=== PATIENT | female | born 1970 | race Caucasian/White ===

== ENCOUNTER 2020-01-14 10:09 | Day surgery (SDC) | payer OTHER ==
[~2020-01-14] VITALS: Ht 152.4 cm; Wt 48.4 kg
[~2020-01-14 10:09] MED LIST: ADDE10CA3 PO; AMBI10TA PO; AMLO5TAB6 PO; CITA40TA6 PO; LIDOCAINE 1% MDV 20ML VIAL SQ PRN; LR 1,000 ML IV ONE
[2020-01-14 10:39] LABS: HEMATOCRIT 39.3 % (36.0-47.0); HEMOGLOBIN 12.7 g/dl (12.0-15.5); MEAN CORPUSCULAR HEMOGLOBIN 29.6 pg (27.0-33.0); MEAN CORPUSCULAR HGB CONC 32.3 g/dl (32.0-36.5); MEAN CORPUSCULAR VOLUME 91.6 fl (80.0-96.0); PLATELET COUNT, AUTOMATED 271 10^3/uL (150-450); RED BLOOD COUNT 4.29 10^6/uL (4.00-5.40); WHITE BLOOD COUNT 6.4 10^3/uL (4.0-10.0)
[2020-01-14] MEDS ORDERED: PHENYLephrine HCL 500 MCG/5 ML (100MCG/ML) SYRINGE (J2370) As Ordered ONE (13:31)
[2020-01-14] MEDS ORDERED: ePHEDrine SULFATE 25 MG/5 ML(5MG/ML) SYRINGE As Ordered ONE (13:31)
[2020-01-14] MEDS ORDERED: CHLOROPROCAINE 2 % INJ PRES.FREE 20 ML VIAL (J2400) As Ordered ONE (13:31)
[2020-01-14] MEDS ORDERED: fentaNYL 100 MCG/2 ML INJECTION (J3010) As Ordered ONE (13:31)
[2020-01-14] MEDS ORDERED: propofoL 200 MG/20 ML VIAL As Ordered ONE (13:32)
[2020-01-14] MEDS ORDERED: LIDOCAINE 2% INJ 100 MG/5 ML SDV (FOR ANES.) As Ordered ONE (13:32)
[2020-01-14] MEDS ORDERED: ONDANSETRON 4MG/2ML VIAL (J2405) IV PRN (15:30)
[2020-01-14] MEDS ORDERED: fentaNYL 100 MCG/2 ML INJECTION (J3010) IV PRN (15:30)
[2020-01-14] MEDS ORDERED: LR 1,000 ML IV SCH ×2 (15:30→16:30)
[2020-01-14] MEDS ORDERED: PERCOCET 5MG/325MG TAB PO PRN (15:30)
[2020-01-14] MEDS ORDERED: NORCO, ANEXSIA 5/325MG TABLET (HYDROcodone/ACETAMINOPHEN) PO PRN (16:30)
[2020-01-14] MEDS ORDERED: IBUPROFEN 600 MG TAB PO PRN (16:30)
[2020-01-14 17:35] VITALS: BP 128/66
--- NOTE | 2020-01-14 21:05 | RO ---
DATE OF PROCEDURE: 01/14/2020 PREOPERATIVE DIAGNOSIS: Bleeding and pain. POSTOPERATIVE DIAGNOSIS: Bleeding and pain. PROCEDURE: Dilation and curettage (D and C), hysteroscopy, NovaSure ablation. SURGEON: Dr. Sania Walton APPLICATIONS PROCESSOR: None. ANESTHESIA: Spinal with some sedation and monitored anesthesia care (MAC). SPECIMENS: Curettings. DESCRIPTION OF PROCEDURE: Miladys was brought to the operating room where sufficient general endotracheal anesthesia was induced, and she was prepped, draped and positioned in the usual sterile fashion. With the bladder emptied and the cervix grasped with a single-tooth tenaculum, the uterus was then sounded. It sounded to 8 with a cervical length of 4, so we had a length of 4 for the cavity. Subsequently, we measured width at 3.5, but we did not have width yet at this point. After the cervix was dilated, the hysteroscope was placed carefully, and the endometrial cavity visualized. There was a blood clot in the endometrial cavity consistent with the patient's report of heavy bleeding and difficulty, but there was no evidence of perforation. There was normal contour. We could not really get a picture without the clot in the way, but we were able to carefully move the scope around and see in individual segments that there was a normal contour, no polyps, normal tubal ostia, etc. The visual appearance was very much consistent with what we sounded as well. And then curettage was carried out and the NovaSure ablative device placed. Using the NovaSure, we then ablated the endometrium with a length measurement of 4 and a width measurement of 3.5, and about 6 seconds under 2 minutes of cook time. The procedure was then ended with the instruments removed. Estimated blood loss for the procedure: Maybe 1 mL. Fluid replacement was crystalloid. Complications: None. Condition and Disposition: Miladys tolerated the procedure well and was recovering in the recovery room in good condition.
== END 2020-01-14 17:40 | disposition home or self-care (01) ==
LOC: M SDC 10:09
PROVIDERS: ATTEND Obstetrics & Gynecology
DX: R10.2 Pelvic and perineal pain (principal); N93.9 Abnormal uterine and vaginal bleeding, unspecified; F41.9 Anxiety disorder, unspecified; F32.9 Major depressive disorder, single episode, unspecified; F98.8 Other specified behavioral and emotional disorders with onset usually occurring in childhood and adolescence; K59.00 Constipation, unspecified; Z88.2 Allergy status to sulfonamides; Z79.899 Other long term (current) drug therapy
CPT/HCPCS: 36415; 58563; 85027; 88305; J2370; J2400; J3010

== ENCOUNTER → 2020-08-13 | Outpatient (CLI) | payer OTHER ==
[~2020-08-13] MED LIST changes: +AMLO1TAB24 PO; -AMLO5TAB6 PO; -LIDOCAINE 1% MDV 20ML VIAL SQ PRN; -LR 1,000 ML IV ONE
[2020-08-13 18:40] LABS: WHITE BLOOD COUNT 5.5 10^3/uL (4.0-10.0)
[2020-08-13 18:41] LABS: BASO % 0.4 % (0.0-1.0); EOS # 0.4 10^3/uL (0.0-0.5); EOS % 6.9 % (0.0-3.0); HEMATOCRIT 43.5 % (36.0-47.0); HEMOGLOBIN 13.6 g/dl (12.0-15.5); LYMPH # 1.9 10^3/uL (1.5-5.0); LYMPH % 33.8 % (24.0-44.0); MEAN CORPUSCULAR HEMOGLOBIN 29.1 pg (27.0-33.0); MEAN CORPUSCULAR HGB CONC 31.3 g/dl (32.0-36.5); MEAN CORPUSCULAR VOLUME 93.1 fl (80.0-96.0); MONO # 0.5 10^3/uL (0.0-0.8); MONO % 8.9 % (0.0-5.0); NEUTROPHILS # 2.7 10^3/uL (1.5-8.5); NEUTROPHILS % 49.6 % (36.0-66.0); PLATELET COUNT, AUTOMATED 250 10^3/uL (150-450); RED BLOOD COUNT 4.67 10^6/uL (4.00-5.40)
[2020-08-13 19:05] LABS: ALBUMIN 3.7 GM/DL (3.2-5.2); ALT/SGPT 17 U/L (12-78); BILIRUBIN,TOTAL 0.3 MG/DL (0.2-1.0); BLOOD UREA NITROGEN 16 MG/DL (7-18); CALCIUM LEVEL 8.5 MG/DL (8.5-10.1); CARBON DIOXIDE LEVEL 28 MEQ/L (21-32); CHLORIDE LEVEL 108 MEQ/L (98-107); CREATININE FOR GFR 0.77 MG/DL (0.55-1.30); FERRITIN 41 NG/ML (8-252); GLOMERULAR FILTRATION RATE > 60.0 (>58); GLUCOSE, FASTING 82 MG/DL (70-100); IRON (FE) 48 UG/DL (50-170); POTASSIUM SERUM 4.8 MEQ/L (3.5-5.1); SODIUM LEVEL 141 MEQ/L (136-145); TOTAL IRON BINDING CAPACITY 319 UG/DL (250-450); TOTAL PROTEIN 7.6 GM/DL (6.4-8.2)
[2020-08-15 10:40] LABS: TOTAL 25(OH) VITAMIN D 19.4 NG/ML (30.0-100.0)
== END ==
LOC: M WUC 09:35
PROVIDERS: ATTEND Physician Assistant
DX: D50.9 Iron deficiency anemia, unspecified (principal)